=== PATIENT | female | born 1955 ===

== ENCOUNTER 2023-01-27 06:00 | Day surgery (SDC) | payer OTHER ==
[~2023-01-27] VITALS: Ht 162.6 cm; Wt 74.8 kg
[~2023-01-27 06:00] MED LIST: PANADOL EXTRA500 MG PO
== END 2023-01-27 21:55 | disposition home or self-care (01) ==
LOC: CIR.AMB 06:00
PROVIDERS: ATTEND Obstetrics & Gynecology Gynecologic Oncology
DX: C54.1 Malignant neoplasm of endometrium (principal); Z20.822 Contact with and (suspected) exposure to COVID-19

== ENCOUNTER 2024-01-26 05:00 | Day surgery (SDC) | payer OTHER ==
[2024-01-23 08:10] VITALS: BP 137/87
[~2024-01-26] VITALS: Ht 162.6 cm; Wt 74.8 kg
[2024-01-26] MEDS ORDERED: POVIDONE-IODINE 118 ML BOTT TOP ONE (09:00)
[2024-01-26] MEDS ORDERED: CEFAZOLIN SODIUM 1,000 MG VIAL IV ONE (09:00)
[2024-01-26] MEDS ORDERED: SUGAMMADEX SODIUM 200 MG/2 ML VIAL IV ONE (09:00)
== END 2024-01-26 10:55 | disposition home or self-care (01) ==
LOC: CIR.AMB 05:00
PROVIDERS: ATTEND Obstetrics & Gynecology Gynecologic Oncology
DX: C54.1 Malignant neoplasm of endometrium (principal); N89.1 Moderate vaginal dysplasia